=== PATIENT | male | born 1970 | race Hispanic/Latino ===

== ENCOUNTER 2022-05-04 08:15 | Emergency (ER) | payer OTHER, SELFPAY ==
[2022-05-04 08:25] VITALS: BP 159/64; PULSE 75; RESP 16; TEMP 36.1; O2SAT 100
[2022-05-04 08:27] VITALS: BP 159/64; PULSE 75; RESP 16; TEMP 36.1; O2SAT 100
--- NOTE | 2022-05-04 08:33 | ED.EYEPROB ---
HPI - Eye Problem General Chief complaint: Eye Problems Stated complaint: Eye Pain Time Seen by Provider: 05/04/22 08:33 Source: patient Mode of arrival: ambulatory Limitations: no limitations History of Present Illness HPI Narrative: 51-year-old male presents with complaint of redness, pain, clear drainage, light sensitivity to right eye for 2 days. Reports he has had pain to right eyes since hitting himself with a tree branch 4 days ago. States that he was trimming trees, wearing eye protection tree branch still hit him in the eye. Does not wear contacts. No other complaints today. All systems reviewed and negative except as noted above. Related Data Home Medications Medication Instructions Recorded Confirmed atorvastatin 40 mg tablet tablet 05/04/22 empagliflozin 25 mg tablet tablet 05/04/22 (Jardiance) glimepiride 4 mg tablet tablet 05/04/22 lisinopril 10 mg tablet tablet 05/04/22 metformin 1,000 mg tablet tablet 05/04/22 semaglutide 0.25 mg or 0.5 mg (2 mg subcut 05/04/22 mg/1.5 mL) subcutaneous pen injector (Ozempic) sitagliptin 100 mg tablet (Januvia) tablet 05/04/22 Allergies Allergy/AdvReac Type Severity Reaction Status Date / Time No Known Allergies Allergy Verified 05/04/22 08:26 Review of Systems Review of Systems: CONSTITUTIONAL: Denies fever, chills, or sweats. EYES: Reports redness,, pain, light sensitivity, clear discharge. ENT: Denies rhinorrhea, congestion, sore throat, or otalgia. CARDIOVASCULAR: Denies chest pain, palpitations, or edema. RESPIRATORY: Denies cough or dyspnea. GASTROINTESTINAL: Denies abdominal pain, nausea, vomiting, or diarrhea. GENITOURINARY: Denies dysuria or hematuria. SKIN: Denies rash or itching. MUSCULOSKELETAL: Denies back pain, joint pain, or myalgia. NEUROLOGIC: Denies headache, numbness, or weakness. PSYCHIATRIC: Denies anxiety or depression. All other systems reviewed are negative, except as documented in HPI. PMFSH Comments At time of signature, agree with nursing past medical, surgical, social and family history. There is no relevant family history pertinent to the presenting complaint. Exam Narrative: GENERAL: This is a well-nourished, well-developed patient, in no apparent distress. HEAD: normocephalic, atraumatic. EYES: PERRL. Sclera erythematous. Clear drainage noted. Topical anesthetic was instilled with good anesthesia using 1gtt of opth anesthetic agent (tetracaine). Fluorescein stain of the R eye was performed with corneal abrasion to right eye. EARS: External ears normal NOSE: External nose normal NECK: Neck supple, non-tender without lymphadenopathy, masses or thyromegaly. CARDIOVASCULAR: Regular rate and rhythm without murmurs, gallops, or rubs. RESPIRATORY: Clear to auscultation. Breath sounds equal bilaterally. No wheezes, rales, or rhonchi. SKIN: warm, Dry, intact with no suspicious lesions or rash, good texture and turgor. NEURO: awake, alert, and oriented to person, place and time. There were no obvious focal neurologic abnormalities. EXTREMITIES: No joint tenderness, effusion, or edema noted. Eyes: Eyes/upper lids images: 1. corneal abrasion Course Course Level of Care: Express Care Visit Vital Signs Vital signs: Vital Signs Temperature 36.1 C L 05/04/22 08:25 Pulse Rate 75 05/04/22 08:25 Respiratory Rate 16 05/04/22 08:25 Blood Pressure 159/64 H 05/04/22 08:25 Pulse Oximetry 100 05/04/22 08:25 Oxygen Delivery Room Air 05/04/22 08:25 Temperature 36.1 C L 05/04/22 08:27 Pulse Rate 75 05/04/22 08:27 Respiratory Rate 16 05/04/22 08:27 Blood Pressure 159/64 H 05/04/22 08:27 Pulse Oximetry 100 05/04/22 08:27 Oxygen Delivery Room Air 05/04/22 08:27 Reviewed MDM - Eye Problem MDM Narrative Medical decision making narrative: Patient is aware of diagnosis, understands and agrees to treatment plan. Anticipatory guidance given. Patient agrees to follow-up as direct
[2022-05-04] MEDS: FLUORESCEIN SOD 1 MG/STRIP RIGHT EYE (08:50)
[2022-05-04] MEDS: DACRIOSE EYE IRRIGATION 118 ML BOTTLE 50 ML RIGHT EYE (08:50)
[2022-05-04] MEDS: TETRACAINE HCL 0.5% OPHTH SOLN 4 ML BTL 2 DROP RIGHT EYE (08:50)
== END 2022-05-04 08:58 | disposition home or self-care (01) ==
PROVIDERS: Emergency Provider Nurse Practitioner Family; PCP Registered Nurse
DX: S05.01XA Injury of conjunctiva and corneal abrasion without foreign body, right eye, initial encounter (principal); W22.8XXA Striking against or struck by other objects, initial encounter; E78.00 Pure hypercholesterolemia, unspecified; I10 Essential (primary) hypertension; E11.9 Type 2 diabetes mellitus without complications
CPT/HCPCS: 99213; A9270; G0463

== ENCOUNTER 2025-05-27 16:53 | Emergency (ER) | payer BC, SELFPAY ==
--- NOTE | 2025-05-27 16:59 | ED_ITS ---
HPI - Eye Problem General Chief complaint: Eye Problems Stated complaint: eye irritation in both eyes Time Seen by Provider: 05/27/25 16:58 Source: patient Mode of arrival: ambulatory Limitations: no limitations History of Present Illness HPI Narrative: Patient is a 54-year-old male who presents with bilateral eye irritation, redness and watering for 3 days. Patient states left eye is more painful. Denies eyes being matted shut in the morning. Unsure if he got something in eye while at work. Denies any vision changes. Related Data Home Medications ?Medication ?Instructions ?Recorded ?Confirmed ?Last Taken ?Type atorvastatin 40 mg tablet tablet 05/04/22 Unknown History empagliflozin 25 mg tablet tablet 05/04/22 Unknown History (Jardiance) glimepiride 4 mg tablet tablet 05/04/22 Unknown History lisinopril 10 mg tablet tablet 05/04/22 Unknown History metformin 1,000 mg tablet tablet 05/04/22 Unknown History semaglutide 0.25 mg or 0.5 mg (2 mg subcut 05/04/22 Unknown History mg/1.5 mL) subcutaneous pen injector (Ozempic) sitagliptin phosphate 100 mg tablet 05/04/22 Unknown History tablet (Januvia) Allergies Allergy/AdvReac Type Severity Reaction Status Date / Time No Known Allergies Allergy Verified 05/27/25 17:08 Review of Systems Review of Systems: All systems reviewed & are unremarkable except as noted in HPI and below Constitutional: Constitutional: Denies body ache(s), Denies fever(s), Denies headache(s), Denies malaise and Denies weakness Eyes: Eyes: Denies blurry vision, Reports eye discharge (watering), Reports irritation, Reports itchy eyes, Denies loss of vision and Reports eye pain ENT: Denies otalgia, Denies headache(s), Denies nasal discharge, Denies sinus pain and Denies sore throat Cardiovascular: Cardiovascular: Denies chest pain, Denies irregular heart rhythm and Denies dyspnea Respiratory: Respiratory: Denies dyspnea Gastrointestinal: Gastrointestinal: Denies abdominal pain, Denies diarrhea, Denies nausea and Denies vomiting Musculoskeletal: Musculoskeletal: Denies back pain, Denies myalgias and Denies arthralgias Integumentary/Breasts: Skin/Breast: Denies pruritus and Denies rash Neurologic: Denies headache(s), Denies loss of vision and Denies weakness Psychiatric: Psychiatric: Reports no additional psychiatric complaints Allergic/Immunologic: Allergic/Immunologic: Reports itchy eyes PMFSH Comments At time of signature, agree with nursing past medical, surgical, social and family history. There is no relevant family history pertinent to the presenting complaint. Exam Const: General: cooperative, healthy appearing, comfortable, no acute distress and well nourished Nutritional Appearance: well nourished Orientation/consciousness: patient oriented x3 Limitations: no limitations HENMT: Head: normal to inspection, normocephalic and atraumatic Ears: external ears normal Face/Nose/Sinus: Normal external nose present, normal facial exam and face symmetric Face and sinus: normal facial exam and face symmetric Mouth: Yes lip normal Eyes: General: appearance normal, both eyes and all related structures Visual Hunt: normal visual hunt by confrontation Alignment and Position: alignment normal and position normal Periorbital: periorbital findings normal Eyelids: eyelids normal Conjunctivae: conjunctival abnormality bilateral conjunctival injection diffuse Sclera: scleral abnormality bilateral scleral injection diffuse Pupils: Equal, round and reactive pupils present EOM: EOMs intact bilaterally Direct Ophthalmoscopy: no photophobia Other: No hyphema, no foreign body under the lids. Neck: Neck: normal visual inspection, full ROM, no lymphadenopathy and no me ningeal signs Chest: Chest palpation & inspection: normal inspection of the chest Resp: Effort & Inspection: normal respiratory effort and able to speak in complete sentences Auscultation: clear to auscultation bilaterally Cardio: Rate: regular rate Rhythm: regular rhythm Heart sounds: S1 normal heart sound present and S2 normal heart sound present GI: Inspection: normal to inspection Skin: General skin exam: normal color and no rashes or lesions noted Neuro: General: patient oriented x3, moves all extremities and no meningeal signs Cranial nerves: Yes Equal, round and reactive pupils present Speech: normal speech Gait exam (Neuro): Normal gait present Extrem: General: normal to inspection, full ROM and no edema Psych: Appearance: grossly normal and well kempt Mental Status: mental status grossly normal Speech and movement: Normal speech and movement present Affect: normal affect Attitude: cooperative Thought process: Normal thought process present Course Course Emergency Course: Patient is aware of diagnosis, understands and agrees to treatment plan. Anticipatory guidance given. Patient agrees to follow-up as directed and is aware of reasons to seek care at the emergency department. Portions of this record may have been created with voice recognition software Level of Care: Express Care Visit Vital Signs Vital signs: Reviewed MDM - Eye Problem MDM Narrative Medical decision making narrative: Pt well hydrated appearing, in no respiratory distress, hemodynamically stable. Recommend supportive care. The patient is stable at time of discharge the clinical impression was discussed and the patient was given the opportunity to ask questions, which were addressed as completely as possible given the information available at present. Anticipatory guidance and return to care precautions were discussed and the importance of primary care follow-up was stressed and encouraged. The patient voiced understanding of the plan, indications to return, and the need for follow-up. Exam findings show no acute concerns or changes Patient is appropriate for outpatient treatment and follow-up. Differential Diagnosis Differential diagnosis: Likely corneal abrasion, conjunctivitis, periorbital cellulitis and corneal ulcer Medical Records Attestation: I reviewed the patient's medical records. Discharge Plan Discharge Clinical Impression: Conjunctivitis Qualifiers: Conjunctivitis type: acute Acute conjunctivitis type: bacterial Laterality: bilateral Qualified Code(s): H10.33 - Unspecified acute conjunctivitis, bilateral Patient Disposition: Home Condition: Stable Instructions: Conjunctivitis (ED) Additional Instructions: Gotas para los ojos seg?n lo prescrito. - Aplique esto michael 3 o 4 d?as hasta que desaparezca el enrojecimiento y la secreci?n. - Compresas fr?as en el ning afectado para mayor comodidad. - Puede necesitar compresas tibias para eliminar los residuos por la ma?lux. - Al limpiar los ojos, use ruddy toallita o bolita de algod?n en ruddy direcci?n y luego cambie de toallita o bolita de algod?n antes de usarla en el otro ning. - No comparta medicamentos; no toque el ning con el medicamento. - Alterne o tome Tylenol o ibuprofeno seg?n las indicaciones del envase para el dolor. - Evite el tiempo frente a pantallas lenore la televisi?n, la computadora, la tableta o el tel?fono. - Mantenga un buen lavado de lisa e higiene para prevenir la propagaci?n de infecciones. Consulte con salinas m?dico de atenci?n primaria u oftalm?logo si la condici?n no mejora en 2 o 3 d?as. Acuda a urgencias si presenta dolor o presi?n detr?s del ning, dificultad para elinor u otros s?ntomas graves. Eye drops as prescribed. -Do this for 3 to 4 days until all redness and discharge has disappeared. -Cold compresses to the affected eye for comfort -May need warm compresses to remove debris in the morning -When cleaning the eyes used a washcloth/cotton ball in one direction then change washcloths/cotton ball before using it on another eye. -Do not share medicine--do not touch the eye with the medicine -Alternate or take Tylenol or ibuprofen as directed in the bottle for pain -Avoid screen time--television, computer, tablet or phone. -Practice good handwashing and hygiene to prevent spread of infection Follow-up with PCP or procedures analyst if condition is not improving in 2-3days. Go to the emergency room if you have pain behind your eye, pressure behind her eye, difficulty seeing, or other severe symptoms Patient Language: Liberian Prescriptions: New ofloxacin 0.3 % drops See Rx Instructions .ROUTE .COMPLEX Qty: 10 0RF Rx Instructions: put 1-2 drps into each eye every 2-4 h x 2 days, then 1-2 drps 4 times/day days 3-7 No Action atorvastatin 40 mg tablet metformin 1,000 mg tablet lisinopril 10 mg tablet glimepiride 4 mg tablet Januvia 100 mg tablet Jardiance 25 mg tablet Ozempic 0.25 mg or 0.5 mg(2 mg/1.5 mL) pen injector SUBCUT ketorolac 0.5 % drops 1 drp RIGHT EYE Q6H PRN (Reason: pain) Qty: 5 0RF ofloxacin 0.3 % drops See Rx Instructions .ROUTE .COMPLEX Qty: 10 0RF Rx Instructions: put 1-2 drps into affected eye(s) every 2-4 h x 2 days, then 1-2 drps 4 times/day days 3-7 Follow-up/Referrals: Raul,MARLIN Curry [Primary Care Provider] - 3 Days Stand Alone Forms: Work/School Release IP Time of Disposition: 18:08
[2025-05-27 17:06] VITALS: BP 110/60; PULSE 71; RESP 18; TEMP 36.8; O2SAT 99
== END 2025-05-27 18:15 | disposition home or self-care (01) ==
PROVIDERS: Emergency Provider Nurse Practitioner Family; PCP Registered Nurse
DX: H10.33 Unspecified acute conjunctivitis, bilateral (principal); I10 Essential (primary) hypertension; E78.00 Pure hypercholesterolemia, unspecified; E11.9 Type 2 diabetes mellitus without complications; Z79.84 Long term (current) use of oral hypoglycemic drugs; Z79.85 Long-term (current) use of injectable non-insulin antidiabetic drugs
CPT/HCPCS: 99213; G0463